=== PATIENT | female | born 1975 | race Caucasian/White ===

== ENCOUNTER 2016-12-26 19:04 | Inpatient (IN) ==
[2016-12-26] MEDS ORDERED: MORPHINE 2 MG/1 ML SYRINGE IV STA (20:20)
[2016-12-26] MEDS ORDERED: ONDANSETRON 4 MG/2 ML VIAL IV STA (20:20)
[2016-12-26] MEDS ORDERED: MORPHINE 2 MG/1 ML SYRINGE ONE (20:37)
[2016-12-26] MEDS ORDERED: ONDANSETRON 4 MG/2 ML VIAL ONE (20:38)
[2016-12-26] MEDS ORDERED: ONDANSETRON 4 MG/2 ML VIAL IV PRN (22:08)
[2016-12-26] MEDS ORDERED: ACETAMINOPHEN 325 MG TABLET PO PRN (22:08)
[2016-12-26] MEDS ORDERED: PROMETHAZINE 25 MG/1 ML VIAL IM PRN (22:08)
[2016-12-26] MEDS: MORPHINE 2 MG/1 ML SYRINGE IV PRN (22:27)
[2016-12-26] MEDS: DEXTROSE 5% NACL 0.45% 1,000 ML IV SCH (22:28)
[2016-12-26 22:36] LABS: Basophils # 0.1 10*3/uL (0.0-0.2); Basophils % 0.6 % (0.0-0.8); Eosinophils # 0.2 10*3/uL (0.0-0.87); Hematocrit 33.7 VOL% (35.7-47.0); Hemoglobin 11.4 GM/DL (12.0-16.0); Immature Granulocytes % 0.4 %; Immature Granulocytes Absolute 0.05 #; Lymphocytes # 1.8 10*3/uL (1.4-4.0); Lymphocytes % 15.5 % (21.3-54.2); Mean Corpuscular HGB Conc 33.8 GM/DL (32-36); Mean Corpuscular Hemoglobin 33 PG (27-34); Mean Corpuscular Volume 98.3 FL (87-102); Mean Platelet Volume 9.3 FL (9.6-12.0); Monocytes # 0.6 10*3/uL (0.11-0.8); Neutrophils # 8.9 10*3/uL (1.4-7.4); Neutrophils % 76.5 % (38.7-73.9); Platelet Count 245 T/CUMM (130-400); Red Blood Count 3.43 MC/CUMM (3.8-5.5); Red Cell Distribution Width 13.3 % (9.3-17.3); White Blood Count 11.6 T/CUMM (4-12)
[2016-12-26 23:04] LABS: Calcium 8.4 MG/DL (8.5-10.1); Osmolality,Calculated 283.3 MOS/KG (273-304); Potassium 3.5 MMOL/L (3.5-5.1)
[2016-12-26] MEDS: PIPERACILLIN/TAZOBACTAM 3,375 MG in SODIUM CHLORIDE 0.9% 100 ML IV SCH (23:25)
[2016-12-27] MEDS: MORPHINE 2 MG/1 ML SYRINGE IV PRN (03:12)
[2016-12-27] MEDS: PIPERACILLIN/TAZOBACTAM 3,375 MG in SODIUM CHLORIDE 0.9% 100 ML IV SCH (06:27)
[2016-12-27] MEDS ORDERED: DIAZEPAM 5 MG TABLET PO ONE (07:37)
[2016-12-27] MEDS ORDERED: FAMOTIDINE 20 MG TABLET PO ONE (07:37)
[2016-12-27] MEDS: DEXTROSE 5% NACL 0.45% 1,000 ML IV SCH ×3 (07:50→15:39)
[2016-12-27] MEDS ORDERED: LEVALBUTEROL 1.25 MG/3 ML NEB RESP TX ONE ×2 (08:30→08:49)
[2016-12-27] MEDS ORDERED: HYDROmorphone 2 MG/1 ML VIAL IV PRN (08:51)
[2016-12-27] MEDS ORDERED: ONDANSETRON 4 MG/2 ML VIAL IV PRN (08:51)
[2016-12-27] MEDS ORDERED: HYDROmorphone 2 MG/1 ML VIAL ONE (09:03)
[2016-12-27] MEDS ORDERED: ONDANSETRON 4 MG/2 ML VIAL ONE (09:03)
[2016-12-27] MEDS: PANTOPRAZOLE 40 MG TABLET PO SCH (09:39)
[2016-12-27] MEDS ORDERED: MIDAZOLAM 2 MG/2 ML VIAL ONE (09:45)
[2016-12-27] MEDS ORDERED: SEVOFLURANE 1 UNIT/15 MINUTE INH ONE (09:45)
[2016-12-27] MEDS ORDERED: PROPOFOL 200 MG/20 ML VIAL IV ONE (09:45)
[2016-12-27] MEDS ORDERED: ROCURONIUM 100 MG/10 ML VIAL IV ONE (09:46)
[2016-12-27] MEDS ORDERED: fentaNYL 100 MCG/2 ML VIAL ONE (09:46)
[2016-12-27] MEDS ORDERED: MORPHINE 2 MG/1 ML SYRINGE IV PRN (12:30)
[2016-12-27] MEDS ORDERED: NON-FORMULARY MEDICATION PO PRN (12:34)
[2016-12-27] MEDS: oxyCODONE/ACETAMINOPHEN 5-325 MG TABLET PO PRN ×3 (12:46→21:02)
[2016-12-27] MEDS: VANCOMYCIN INJ 1,000 MG in SODIUM CHLORIDE 0.9% 250 ML IV SCH (12:46)
[2016-12-27] MEDS ORDERED: SODIUM CHLORIDE 0.9% 1,000 ML IV ONE (14:34)
[2016-12-27] MEDS: NICOTINE 14 MG/24 HR PATCH TRANSDERM SCH (15:38)
[2016-12-27 17:41] LABS: Barbiturates Screen,Urine Negative (Negative); Benzodiazepines Screen,Urine Negative (Negative); Cannabinoid Screen,Urine Negative (Negative); Opiate Screen,Urine Positive (Negative); Phencyclidine Screen,Urine Negative (Negative)
[2016-12-27] MEDS ORDERED: LACTATED RINGERS 1,000 ML IV ONE (19:04)
[2016-12-28] MEDS: VANCOMYCIN INJ 1,000 MG in SODIUM CHLORIDE 0.9% 250 ML IV SCH ×2 (00:24→14:17)
[2016-12-28] MEDS: oxyCODONE/ACETAMINOPHEN 5-325 MG TABLET PO PRN ×3 (02:30→18:52)
[2016-12-28] MEDS: HYDROmorphone 2 MG/1 ML VIAL IV PRN ×3 (07:40→22:58)
[2016-12-28] MEDS: DEXTROSE 5% NACL 0.45% 1,000 ML IV SCH ×3 (08:38→14:16)
[2016-12-28] MEDS ORDERED: NICOTINE 14 MG/24 HR PATCH TRANSDERM SCH (09:00)
[2016-12-28] MEDS: PANTOPRAZOLE 40 MG TABLET PO SCH (10:02)
[2016-12-28] MEDS: NICOTINE 14 MG/24 HR PATCH TRANSDERM SCH (10:02)
[2016-12-28] MEDS ORDERED: BUPIVACAINE 0.25% 50 ML VIAL ONE (10:30)
[2016-12-28] MEDS ORDERED: LIDOCAINE 1%/EPI INJ 20 ML VIAL ONE (10:30)
[2016-12-28] MEDS ORDERED: ONDANSETRON 4 MG/2 ML VIAL ONE ×2 (10:36→11:34)
[2016-12-28] MEDS ORDERED: HYDROmorphone 2 MG/1 ML VIAL IV PRN (11:31)
[2016-12-28] MEDS ORDERED: ONDANSETRON 4 MG/2 ML VIAL IV PRN (11:31)
[2016-12-28] MEDS ORDERED: MIDAZOLAM 2 MG/2 ML VIAL ONE (11:34)
[2016-12-28] MEDS ORDERED: KETAMINE 500 MG/10 ML VIAL ONE (11:34)
[2016-12-28] MEDS ORDERED: fentaNYL 100 MCG/2 ML VIAL ONE (11:34)
[2016-12-28] MEDS ORDERED: ETOMIDATE 20 MG/10 ML VIAL IV ONE ×2 (11:35)
[2016-12-28] MEDS: CAFFEINE PO SCH ×2 (15:37→18:52)
[2016-12-28] MEDS: [UNRECOGNIZED DRUG - OTHER] PO SCH ×2 (15:37→18:52)
[2016-12-28] MEDS: ACETAMINOPHEN PO SCH ×2 (15:37→18:52)
[2016-12-29] MEDS: VANCOMYCIN INJ 1,000 MG in SODIUM CHLORIDE 0.9% 250 ML IV SCH ×3 (01:25→23:44)
[2016-12-29] MEDS: DEXTROSE 5% NACL 0.45% 1,000 ML IV SCH ×4 (01:27→14:41)
[2016-12-29] MEDS: CAFFEINE PO SCH ×4 (01:27→09:18)
[2016-12-29] MEDS: ACETAMINOPHEN PO SCH ×4 (01:27→09:18)
[2016-12-29] MEDS: [UNRECOGNIZED DRUG - OTHER] PO SCH ×4 (01:27→09:18)
[2016-12-29] MEDS: HYDROmorphone 2 MG/1 ML VIAL IV PRN ×3 (04:22→15:23)
[2016-12-29] MEDS: oxyCODONE/ACETAMINOPHEN 5-325 MG TABLET PO PRN ×5 (05:02→21:40)
[2016-12-29] MEDS: MICONAZOLE 100 MG VAG SUPP 7/BOX VAG SCH ×2 (06:51→21:40)
[2016-12-29] MEDS: PANTOPRAZOLE 40 MG TABLET PO SCH (08:21)
[2016-12-29] MEDS: NICOTINE 14 MG/24 HR PATCH TRANSDERM SCH (09:18)
[2016-12-29] MEDS ORDERED: MAGNESIUM HYDROXIDE SUSP 30 ML UDCUP PO ONE (12:14)
[2016-12-29] MEDS: DOCUSATE SODIUM 100 MG CAPSULE PO SCH (12:58)
[2016-12-29] MEDS: SODIUM HYPOCHLORITE 0.25% IRRIG 473 ML BOTTLE TOP SCH (15:11)
[2016-12-30 06:21] LABS: Basophils # 0.1 10*3/uL (0.0-0.2); Basophils % 1.2 % (0.0-0.8); Eosinophils # 0.4 10*3/uL (0.0-0.87); Eosinophils % 7.1 % (0.00-10.9); Hemoglobin 9.7 GM/DL (12.0-16.0); Immature Granulocytes % 0.4 %; Immature Granulocytes Absolute 0.02 #; Lymphocytes # 1.8 10*3/uL (1.4-4.0); Lymphocytes % 35.8 % (21.3-54.2); Mean Corpuscular HGB Conc 32.3 GM/DL (32-36); Mean Corpuscular Hemoglobin 33 PG (27-34); Mean Platelet Volume 9.9 FL (9.6-12.0); Monocytes # 0.4 10*3/uL (0.11-0.8); Monocytes % 7.9 % (1.7-12.7); Neutrophils # 2.4 10*3/uL (1.4-7.4); Neutrophils % 47.6 % (38.7-73.9); Platelet Count 261 T/CUMM (130-400); Red Blood Count 2.97 MC/CUMM (3.8-5.5); Red Cell Distribution Width 13.1 % (9.3-17.3); White Blood Count 5.1 T/CUMM (4-12)
[2016-12-30 06:47] LABS: Calcium 8.5 MG/DL (8.5-10.1); Magnesium 2.2 MG/DL (1.8-2.4); Osmolality,Calculated 279.1 MOS/KG (273-304); Potassium 4.5 MMOL/L (3.5-5.1)
[2016-12-30 07:26] VITALS: BP 111/55
[2016-12-30] MEDS: DOCUSATE SODIUM 100 MG CAPSULE PO SCH (08:04)
[2016-12-30] MEDS: PANTOPRAZOLE 40 MG TABLET PO SCH (08:04)
[2016-12-30] MEDS: oxyCODONE/ACETAMINOPHEN 5-325 MG TABLET PO PRN (08:04)
[2016-12-30] MEDS: SODIUM HYPOCHLORITE 0.25% IRRIG 473 ML BOTTLE TOP SCH (09:10)
[2016-12-30] MEDS: NICOTINE 14 MG/24 HR PATCH TRANSDERM SCH (09:10)
[2016-12-30] MEDS: HYDROmorphone 2 MG/1 ML VIAL IV PRN (09:17)
== END 2016-12-30 11:05 | disposition home or self-care (01) | DRG 581 ==
LOC: N.ED 19:04 → N.EDINP 19:04
PROVIDERS: ADMIT Surgery; ATTEND Surgery